=== PATIENT | female | born 1975 | race Caucasian/White ===

== ENCOUNTER 2020-08-28 10:06 | Emergency (ER) | payer OTHER ==
[~2020-08-28 10:06] MED LIST: CEFUROXIME500 MG PO; MEDROL4 MG PO; TESSALON PERLE100 MG PO
[2020-08-28 10:41] LABS: HEMOGLOBIN 13.6 gm/dl (12.3-15.3); RED BLOOD COUNT 5.04 M/UL (4.00-5.10); WHITE BLOOD COUNT 10.5 K/UL (4.5-11.0)
[2020-08-28 11:21] LABS: BUN/CREATININE RATIO 16 (0-10)
== END 2020-08-28 16:32 | disposition home or self-care (01) ==
LOC: ER1 10:06
PROVIDERS: Physician Assistant
DX: R07.9 Chest pain, unspecified (principal); E11.9 Type 2 diabetes mellitus without complications; I10 Essential (primary) hypertension; E78.5 Hyperlipidemia, unspecified; F17.210 Nicotine dependence, cigarettes, uncomplicated; Z79.899 Other long term (current) drug therapy; Z88.8 Allergy status to other drugs, medicaments and biological substances
CPT/HCPCS: 71045; 80053; 82550; 82553; 83874; 84484; 85025; 93005; 99285